=== PATIENT | male | born 1995 | race American Indian/Alaskan Native ===

== ENCOUNTER 2017-02-15 20:09 | Emergency (ER) | payer OTHER ==
[2017-02-15] MEDS ORDERED: TYLENOL ONE (21:02)
[2017-02-15] MEDS ORDERED: TYLENOL PO ONE (21:07)
[2017-02-15 21:41] LABS: Anion Gap 20 mmol/L; BUN/Creatinine Ratio 10; Blood Urea Nitrogen 8 mg/dL (9-20); Calcium 9.3 mg/dL (8.4-10.2); Carbon Dioxide 23 mmol/L (22-30); Chloride 100.8 mmol/L (98-107); Glucose 90 mg/dL (75-100); Potassium 3.4 mmol/L (3.6-5.0); Sodium 140 mmol/L (137-145)
[2017-02-15 21:43] LABS: Basophils % (Auto) 0.5 % (0.0-1.8); Hematocrit 45.6 % (35.5-45.6); Mean Corpuscular HGB Conc 33 % (32-34); Mean Corpuscular Hemoglobin 29 pg (28-32); Mean Corpuscular Volume 88 fl (84-94); Platelet Count 211 K/mm3 (140-440); Red Blood Count 5.17 M/mm3 (3.65-5.03); Red Cell Distribution Width 13.7 % (13.2-15.2); White Blood Count 10.5 K/mm3 (4.5-11.0)
[2017-02-15 23:13] LABS: Bilirubin,Urine NEG (Negative); Blood,Urine SM (Negative); Ketones,Urine NEG (Negative); Leukocyte Esterase,Urine MOD (Negative); Mucus,Urine 3+ /HPF; Nitrite,Urine NEG (Negative); Protein,Urine <15 mg/dL mg/dL (Negative)
[2017-02-16] MEDS ORDERED: ROCEPHIN/NS 1 GM/50 ML 1 GM/50 ML BAG IV ONE (01:12)
--- NOTE | 2017-02-16 01:17 | Emergency Department Report ---
ED General Adult HPI - General Chief complaint: Sore Throat Stated complaint: FEVER,BACK PAIN,NAUSE Time Seen by Provider: 02/16/17 00:33 Source: patient Mode of arrival: Ambulatory Limitations: No Limitations - History of Present Illness Initial comments: 21-year-old male presents emergency Department with fever back pain and headache. Patient states his symptoms started earlier today. Fever 202.8. He does have some redness in the back of his throat and has some sore throat. He did have some mild dysuria. He appears nontoxic. -: days(s) (1) Location: head, back Severity scale (0 -10): 9 Quality: aching Consistency: constant Worsens with: none Associated Symptoms: fever/chills, headaches. denies: confusion, chest pain, loss of appetite, malaise, nausea/vomiting Treatments Prior to Arrival: NSAID - Related Data Previous Rx's Medication Instructions Recorded Last Taken Type Amoxicillin/Potassium Clav 1 each PO BID #18 tablet 02/16/17 Unknown Rx [Augmentin 875-125 Tablet] Ibuprofen [Motrin 600 MG tab] 600 mg PO Q8H PRN #30 tablet 02/16/17 Unknown Rx Allergies Allergy/AdvReac Type Severity Reaction Status Date / Time No Known Allergies Allergy Unverified 08/02/13 14:55 ED Review of Systems ROS: Stated complaint: FEVER,BACK PAIN,NAUSE Other details as noted in HPI Comment: All other systems reviewed and negative Eyes: denies: vision change ENT: throat pain. denies: ear pain, dental pain Cardiovascular: denies: chest pain, palpitations Gastrointestinal: denies: abdominal pain, nausea Musculoskeletal: back pain Neurological: headache. denies: weakness, numbness ED Past Medical Hx - Past Medical History Previous Medical History?: No - Surgical History Past Surgical History?: No - Family History Family history: no significant - Social History Smoking Status: Never Smoker - Medications Home Medications: Home Medications Medication Instructions Recorded Confirmed Last Taken Type Amoxicillin/Potassium Clav 1 each PO BID #18 tablet 02/16/17 Unknown Rx [Augmentin 875-125 Tablet] Ibuprofen [Motrin 600 MG tab] 600 mg PO Q8H PRN #30 tablet 02/16/17 Unknown Rx ED Physical Exam - General Limitations: No Limitations General appearance: alert, in no apparent distress - Head Head exam: Present: atraumatic, normocephalic - Eye Eye exam: Present: normal appearance. Absent: scleral icterus, conjunctival injection - ENT ENT exam: Present: mucous membranes moist - Neck Neck exam: Present: normal inspection - Respiratory Respiratory exam: Present: normal lung sounds bilaterally. Absent: respiratory distress - Cardiovascular Cardiovascular Exam: Present: regular rate, normal rhythm, normal heart sounds. Absent: systolic murmur, diastolic murmur, rubs, gallop - GI/Abdominal GI/Abdominal exam: Present: soft, normal bowel sounds - Rectal Rectal exam: Present: deferred - Extremities Exam Extremities exam: Present: normal inspection - Back Exam Back exam: Present: normal inspection - Neurological Exam Neurological exam: Present: alert, oriented X3 - Psychiatric Psychiatric exam: Present: normal affect, normal mood - Skin Skin exam: Present: warm, dry, intact, normal color. Absent: rash ED Course Vital Signs 02/15/17 02/15/17 02/16/17 20:51 20:53 00:31 Temperature 102.8 F H 102.8 F H 99.7 F H Pulse Rate 109 H 108 H 90 Respiratory 18 18 16 Rate Blood Pressure 140/82 140/82 Blood Pressure 113/76 [Left] O2 Sat by Pulse 99 99 99 Oximetry ED Medical Decision Making - Lab Data Result diagrams: 02/15/17 21:15 02/15/17 21:15 Laboratory Results - last 24 hr 02/15/17 02/15/17 02/15/17 21:15 21:15 22:35 WBC 10.5 RBC 5.17 H Hgb 15.0 Hct 45.6 MCV 88 MCH 29 MCHC 33 RDW 13.7 Plt Count 211 Lymph % (Auto) 7.1 L [place] % (Auto) 10.7 H Eos % (Auto) 0.0 Baso % (Auto) 0.5 Lymph # 0.7 L [place] # 1.1 H Eos # 0.0 Baso # 0.1 Seg Neutrophils % 81.7 H Seg Neutrophils # 8.5 H Sodium 140 Potassium 3.4 L Chloride 100.8 Carbon Dioxide 23 Anion Gap 20 BUN 8 L Creatinine 0.8 Estimated GFR > 60 BUN/Creatinine Ratio 10 Glucose 90 Calcium 9.3 Urine Color Yellow Urine Turbidity Clear Urine pH 5.0 Ur Specific [place] 1.019 Urine Protein <15 mg/dl Urine Glucose (UA) Neg Urine Ketones Neg Urine Blood Sm Urine Nitrite Neg Urine Bilirubin Neg Urine Urobilinogen 2.0 Ur Leukocyte Esterase Mod Urine WBC (Auto) 24.0 H Urine RBC (Auto) 6.0 Urine Mucus 3+ - Medical Decision Making 21-year-old male here with fever and back pain and headache. Patient also with a mild sore throat. Patient has a significant white count in his urine and givensuspect a possibility of pyelonephritis. As noted history of pyelonephritis in the past. Plan to treat with IV antibiotics here in the emergency department we'll discharge home on oral antibiotics. Portions of this chart were dictated with dictation software. There may be dictation errors contained within this note. Critical care attestation.: If time is entered above; I have spent that time in minutes in the direct care of this critically ill patient, excluding procedure time. ED Disposition Clinical Impression: Pyelonephritis Disposition: DC-01 TO HOME OR SELFCARE Is pt being admited?: No Condition: Stable Instructions: Acute Pyelonephritis (ED) Prescriptions: Amoxicillin/Potassium Clav [Augmentin 875-125 Tablet] 1 each PO BID #18 tablet Ibuprofen [Motrin 600 MG tab] 600 mg PO Q8H PRN #30 tablet PRN Reason: Pain Referrals: PRIMARY CARE, [Primary Care Provider] - 3-5 Days
[2017-02-16 02:45] VITALS: BP 109/69
== END 2017-02-16 02:25 | disposition home or self-care (01) ==
LOC: ED 20:09
DX: N12 Tubulo-interstitial nephritis, not specified as acute or chronic (principal)
CPT/HCPCS: 36415; 80048; 81001; 85025; 87086; 87116; 87430; 96365; 99283; J0696

== ENCOUNTER 2017-02-17 19:19 | Emergency (ER) | payer OTHER ==
[2017-02-17 19:42] VITALS: BP 140/95
== END 2017-02-18 06:44 | disposition left against medical advice (07) ==
LOC: ED 19:19
DX: J02.9 Acute pharyngitis, unspecified (principal); Z53.21 Procedure and treatment not carried out due to patient leaving prior to being seen by health care provider

== ENCOUNTER 2019-06-29 21:43 | Emergency (ER) | payer OTHER ==
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
== END 2019-06-30 00:10 | disposition left against medical advice (07) ==
LOC: ED 21:43
DX: S16.1XXA Strain of muscle, fascia and tendon at neck level, initial encounter (principal); S39.012A Strain of muscle, fascia and tendon of lower back, initial encounter; V89.2XXA Person injured in unspecified motor-vehicle accident, traffic, initial encounter; Y93.89 Activity, other specified; Y92.410 Unspecified street and highway as the place of occurrence of the external cause; Y99.8 Other external cause status
CPT/HCPCS: 72040; 72100; 99283

== ENCOUNTER 2020-05-15 12:50 | Emergency (ER) | payer SELFPAY | END 2020-05-15 15:45 | disposition left against medical advice (07) | LOC: ED 12:50 | DX: R06.02 Shortness of breath (principal); Z53.21 Procedure and treatment not carried out due to patient leaving prior to being seen by health care provider ==

== ENCOUNTER 2020-07-23 01:44 | Emergency (ER) | payer OTHER, BC ==
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
[2020-07-23] MEDS ORDERED: ACETAMINOPHEN 325 MG TAB PO ONE (03:02)
[2020-07-23 04:06] VITALS: BP 132/88
== END 2020-07-23 04:06 | disposition home or self-care (01) ==
LOC: ED 01:44
DX: M25.511 Pain in right shoulder (principal); M79.604 Pain in right leg; R51.9 Headache, unspecified; M54.9 Dorsalgia, unspecified; Z88.6 Allergy status to analgesic agent; Z79.899 Other long term (current) drug therapy; V49.59XA Passenger injured in collision with other motor vehicles in traffic accident, initial encounter; Y92.410 Unspecified street and highway as the place of occurrence of the external cause; Y93.89 Activity, other specified; Y99.8 Other external cause status
CPT/HCPCS: 99282

== ENCOUNTER 2020-08-29 11:41 | Emergency (ER) | payer BC, OTHER ==
[2020-08-29 12:26] VITALS: BP 122/66
[2020-08-29] MEDS ORDERED: ACETAMINOPHEN 500 MG TAB PO ONE (12:32)
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
== END 2020-08-29 12:54 | disposition home or self-care (01) ==
LOC: ED 11:41
DX: S90.31XA Contusion of right foot, initial encounter (principal); S00.83XA Contusion of other part of head, initial encounter; F31.9 Bipolar disorder, unspecified; Z88.6 Allergy status to analgesic agent; Z79.899 Other long term (current) drug therapy; Y04.8XXA Assault by other bodily force, initial encounter; Y93.89 Activity, other specified; Y92.89 Other specified places as the place of occurrence of the external cause; Y99.8 Other external cause status

== ENCOUNTER 2022-01-02 06:03 | Emergency (ER) | payer SELFPAY ==
[2022-01-02] MEDS ORDERED: ACETAMINOPHEN 500 MG TAB PO ONE (08:54)
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
[2022-01-02 10:51] VITALS: BP 122/78
== END 2022-01-02 10:58 | disposition home or self-care (01) ==
LOC: ED 06:03
DX: S69.91XA Unspecified injury of right wrist, hand and finger(s), initial encounter (principal); Z88.6 Allergy status to analgesic agent; Z79.899 Other long term (current) drug therapy; Z98.890 Other specified postprocedural states; W22.8XXA Striking against or struck by other objects, initial encounter; Y93.89 Activity, other specified; Y92.89 Other specified places as the place of occurrence of the external cause; Y99.8 Other external cause status
CPT/HCPCS: 99283